=== PATIENT | female | born 1970 | race Caucasian/White ===

== ENCOUNTER 2018-08-13 10:30 | Outpatient (RCR) | payer BC, SELFPAY ==
--- NOTE | 2018-07-30 12:32 | HP.PTEVAL_ITS ---
Patient's Visit Information KAM FALLON is a 48 year old F referred to Physical Therapy by Jenny Alvarez MD with a diagnosis of SPECIFIED DORSOPATHIES,LUMBAR REGION. Date of Evaluation: 07/30/18 Physical Therapist: Jose Preciado PT, - Visit Plan Frequency: 1-2x /Week Duration: 4 Weeks Plan: ARIC E'XS,POSTURAL EX'S ,DLS ,MODALITIES - Subjective Subjective: This 48 y/o male presents to physical therapy with lumbar pain with radicular symptoms left leg. Patient has lumbar pain for several years,. But past 2 months symptoms worse in left leg. Patient does have h/o falling in January. Today,pain located left buttuck hams . Symptoms worse lifting,bending,working ,sitting,standing. Symptoms some better with walking.Seen DR muscle relaxers. Coughing/sneezing -. Bowel/bladder -. Syptoms affect sleeping. Patient has no treatment. Patient lumbar pain affects QOL and job demands. SOCAIL: . VOCATION: [place] - Pain Left Lower Extremity Pain Intensity (Out of 10): 8 Pain Intensity Range: 10 Comment: butuck hams - Objective POSTURE: mild foward posture. GAIT: mild antalgic gait left sie. NEURO: denies parathesia/tingling,reflexes L3-4,L4-5,L5-S1. MMT: quads/hams 4/5,4-/5 hip ankle 4/5. LUMBAR ROM: flexion min/mod loss,extension WNL,side glides min loss. SYMMTRIES: align - Special Tests L/S Slump test left side: Negative L/S Slump test right side: Negative L/S Left Straight Leg Raise: Negative L/S Right Straight Leg Raise: Negative Lumbar Standing: Flexion - Mechanical Response: No effect Lumbar Standing: Flexion - Symptoms During Testing: Increases Lumbar Standing: Flexion - Symptoms After Testing: Worse Lumbar Standing: Extension - Mechanical Response: No effect Lumbar Standing: Extension - Symptoms During Testing: Centralizing Lumbar Standing: Extension - Symptoms After Testing: Better Lumbar Standing: Right Side Glides - Mechanical Response: No effect Lumbar Standing: Right Side [place] - Symptoms During Testing: No effect Lumbar Standing: Right Side [place] - Symptoms After Testing: No effect Lumbar Standing: Left Side [place] - Mechanical Response: No effect Lumbar Standing: Left Side [place] - Symptoms During Testing: No effect Lumbar Standing: Left Side [place] - Symptoms After Testing: No effect Lumbar Lying: Flexion - Mechanical Response: No effect Lumbar Lying: Flexion - Symptoms During Testing: Increases Lumbar Lying: Flexion - Symptoms After Testing: Better Lumbar Lying: Extension - Mechanical Response: No effect Lumbar Lying: Extension - Symptoms During Testing: Centralizing Lumbar Lying: Extension - Symptoms After Testing: No effect - Goals Goal 1:: Independant with HEP Goal Time Frame: 2-4 Weeks Goal 2:: Independant with posture/body mechanics Goal Time Frame: 2-4 Weeks Goal 3:: Decrease lumbar pain by 50 % or greater to improve function Goal Time Frame: 2-4 Weeks Goal 4:: Patient improve lumbar OM for function of recovery Goal Time Frame: 2-4 Weeks Goal 5:: Patient to improve LENY back score by 5 points or greateer to improve QOL - Rehabilitation Potential Physical Therapy Diagnosis: This patient has derrangemnt above knee with with disc involememt centralizes with extension worse with flexion Rehabilitation Potential: Good - Anticipated Interventions Patient/Client Instruction: Educate patient on: Condition, Plan of Care For the Purpose of:: To decrease pain, To increase ROM, To improve muscle performance and motor function, To improve ability to perform ADL's, To increase tolerance to activity/condition/position, To decrease level of supervision to perform tasks, To improve health of tissue, To decrease soft tissue restriction, To increase flexibility/ROM, To prevent re-injury, To improve ability to perform tasks related to life management Therapeutic Exercise to Include: Strength training, Body mechanics, Postural training, Flexibilty training, Dynamic Lumbar Stabilization, Aric Exercises For the Purpose of:: To decrease pain, To increase ROM, To improve muscle performance and motor function, To improve ability to perform ADL's, To increase tolerance to activity/condition/position, To improve performance and independence with ADL's, To improve ability of physical actions for home/community/work/leisure, To improve health of tissue, To decrease soft tissue restriction, To prevent re-injury, To improve ability to perform tasks related to life management TENS: Yes IF ES: Yes Cryotherapy (ice pack, ice massage): Yes Thermo therapy (hot pack): Yes Ultrasound (thermal/non thermal): Yes For the Purpose of:: To decrease pain, To increase ROM, To improve nutrient delivery to tissue, To increase oxygenation perfusion, To improve health of tissue, To decrease soft tissue restriction Thank you for the opportunity to evaluate your patient. For Medicare and Medicare HMO plans, please review the plan of care and approve it. It will need to be FAXED BACK to us at [phone] for Medicare purposes. Please let me know if there are questions or concerns regarding this plan of care. Physician Signature: Date:
--- NOTE | 2018-08-13 11:08 | HP.PTDCSUM ---
HP - PT D/C Summary It has been my pleasure to treat KAM FALLON under orders from Jenny Alvarez MD, for the diagnosis of SPECIFIED DORSOPATHIES,LUMBAR REGION for a total of 2 visit(s). Discharge Date: 08/13/18 Please see the following information for a summary of their discharge status. - Subjective Subjective: Doing alot better - Pain Left Lower Extremity Pain Intensity (Out of 10): 2 - Overall Improvement % Improvement: 75 - Objective Objective/Function: POSTURE: WFL. GAIT: NORMAL STORM. MMT: QUADS/HAMS /HIP 4/5. LUMBAR ROM: WFL. RETURN TO FUNCTION OF RECOVERY - Goals Goal 1:: Independant with HEP Goal Progress: Goal Met Goal 2:: Independant with posture/body mechanics Goal Progress: Goal Met Goal 3:: Decrease lumbar pain by 50 % or greater to improve function Goal Progress: Goal Met Goal 4:: Patient improve lumbar OM for function of recovery Goal Progress: Goal Met Goal 5:: Patient to improve LENY back score by 5 points or greateer to improve QOL - Plan Plan: ARIC E'XS,POSTURAL EX'S ,DLS ,MODALITIES - D/C Information Discharge Comments: HEP If there are questions or concerns regarding this patient's physical therapy, please feel free to call me at [phone]. Thank you for the referral of this patient. Sincerely, Jose Preciado, PT,
== END 2018-08-13 19:00 | disposition home or self-care (01) ==
LOC: PT 10:30
PROVIDERS: Family Provider Family Medicine; PCP Family Medicine; Referring Provider Family Medicine; Visit Provider Family Medicine
DX: M53.86 Other specified dorsopathies, lumbar region (principal)
CPT/HCPCS: 97014; 97110; 97162; G0283

== ENCOUNTER → 2018-08-27 09:17 | Outpatient (CLI) | payer BC, SELFPAY ==
[2018-08-27 12:45] LABS: ALB/GLOB Ratio 0.9 RATIO (0.9-2.4); AST(SGOT) 13 U/L (15-37); Alanine Aminotransfer ALT/SGPT 21 U/L (13-56); Albumin, Serum 3.7 g/dL (3.2-5.0); Alkaline Phosphatase 74 U/L (45-117); Anion Gap 7 (5-15); BUN 11 mg/dL (7-18); BUN/Creat Ratio 19.2 RATIO (10-20); Calcium,Total 8.6 mg/dL (8.5-10.1); Chloride 105 mmol/L (98-107); Cholesterol 162 mg/dL (200); Creatinine, Serum 0.57 mg/dL (0.55-1.02); EST Glomerular Filtration Rate 120 mL/min (>60); Est Glom Filt Rate - Afr Amer 145 mL/min (>60); Globulin 3.9 g/dL (2.2-4.2); Glucose 241 mg/dL (74-106); High Density Lipoprotein 36 mg/dL; Potassium 4.1 mmol/L (3.5-5.1); Protein, Total 7.6 g/dL (6.4-8.2); Sodium Level 137 mmol/L (136-145); Triglycerides 78 mg/dL; Very Low Density Lipoprotein 16 mg/dL (5-40)
[2018-08-27 12:52] LABS: Microalbumin,Random Urine 60.2 mg/L (NO RANGE EST.); Microalbumin:Creatinine Ratio 51.9 mg/g CRE (<30 mg/g CRE)
== END ==
PROVIDERS: PCP Family Medicine; Visit Provider Family Medicine
DX: E11.65 Type 2 diabetes mellitus with hyperglycemia (principal)
CPT/HCPCS: 36415; 80053; 80061; 82043; 82570

== ENCOUNTER → 2018-10-24 10:12 | Outpatient (CLI) | payer SELFPAY ==
--- NOTE | 2018-10-24 10:16 | RAD_ITS ---
STUDY: X-RAY - RIGHT KNEE REASON FOR EXAM: Female, 48 years old. Injury. TECHNIQUE: 3 view(s) of the knee. COMPARISON: None. FINDINGS: Normal visualized distal femur. Normal visualized proximal tibia and fibula. Normal proximal tibiofibular articulation. Normal medial femorotibial compartment. Normal lateral femorotibial compartment. Normal patellofemoral articulation. Degenerative spur is seen along the anterior superior aspect of the patella. Small joint effusion. RAD/Knee 3 Views IMPRESSION: Small joint effusion. Electronically Signed: Dago Plummer MD at 10:53 EST , Service support ,
== END ==
LOC: HPRAD 10:13
PROVIDERS: PCP Family Medicine; Referring Provider Physician Assistant; Visit Provider Physician Assistant
DX: S86.911A Strain of unspecified muscle(s) and tendon(s) at lower leg level, right leg, initial encounter (principal)
CPT/HCPCS: 73562

== ENCOUNTER → 2018-11-19 07:20 | Outpatient (CLI) | payer OTHER, SELFPAY ==
[2018-11-12 16:02] VITALS: BMI 46.0
--- NOTE | 2018-11-19 07:28 | MRI_ITS ---
STUDY: MRI RIGHT KNEE REASON FOR EXAM: Female, 48 years old. Pain. Strain. TECHNIQUE: Standardized fat and water weighted pulse sequences were obtained in all 3 orthogonal planes. COMPARISON: X-ray October 24, 2018. FINDINGS: There is partial tear of the posterior horn of the medial meniscus adjacent to the meniscal root, series 3 image 25/42 and series 6 image 12/30. Minimal degenerative signal of the posterior horn and body of the medial meniscus. Normal hyaline cartilage of the medial femorotibial compartment. There is mild osteoarthritic spur formation of the medial knee compartment. Normal medial collateral ligamentous complex (MCL). Normal distal semimembranosus, gracilis and semitendinosus tendons. Normal lateral meniscus. Normal hyaline cartilage of the lateral femorotibial compartment. Normal lateral femoral condyle and tibial plateau. Normal proximal tibiofibular articulation. Normal lateral collateral (fibular) ligament. Normal popliteus tendon. Normal biceps femoris tendon. Normal anterior cruciate ligament (ACL). Normal posterior cruciate ligament (PCL). Normal congruent patellofemoral articulation. Normal hyaline cartilage of the patellofemoral compartment. Normal medial and lateral patellar retinaculum. Normal quadriceps tendon. Normal patellar tendon. Normal Hoffa's fat pad. There is a small volume joint effusion. The soft tissues are unremarkable. The otherwise visualized osseous structures are unremarkable. MRI/Lower Ext Joint Only (Routine) IMPRESSION: Medial meniscus tear. Joint effusion. Electronically Signed: Frank Haji MD at 8:51 EST , Service support ,
== END ==
PROVIDERS: Family Provider Family Medicine; PCP Family Medicine; Referring Provider Physician Assistant; Visit Provider Physician Assistant
DX: S83.249A Other tear of medial meniscus, current injury, unspecified knee, initial encounter (principal); M25.469 Effusion, unspecified knee
CPT/HCPCS: 73721

== ENCOUNTER 2018-12-27 20:11 | Emergency (ER) | payer BC, SELFPAY ==
[2018-12-05 16:00] VITALS: BMI 46.0
[2018-12-27 20:13] VITALS: BP 154/75; PULSE 91; RESP 16; TEMP 36.7; O2SAT 97; BMI 41.7
--- NOTE | 2018-12-27 20:30 | ED.VISSUMM ---
- ER Visit Summary Date of Service: 12/27/18 Chief Complaint: Right flank pain History of Present Illness: The patient is a 48 F who has right flank pain. Started yesterday. It sharp and stabbing in the right flank. It does not radiate. She has had urinary frequency but denies dysuria or hematuria. She has no history of kidney stones. She took nothing for it today. She went to urgent care and they directed her here. She is a diabetic. Physical Examination: Vital signs reviewed. HEENT exam unremarkable. Heart is regular rate and rhythm without murmurs. Lungs are clear to auscultation. Abdomen is soft and nontender. Does have tenderness to palpation of the right flank. There is no CVA tenderness per se. Extremities reveal no edema. Skin exam normal. Neurologic exam normal. Test Results: Urinalysis reveals 0-5 white cells and 0-5 red blood cells. CAT scan reveals perinephric stranding indicating infection Emergency Department Course and Treatment: She was given naproxen. I will start her on Bactrim for presumed pyelonephritis even though her urine is not full of white blood cells. I will give her the same medications for home. She will follow-up with her PCP Treatment Plan: [] Disposition: Discharge Impression: Pyelonephritis This note was generated with [employer] dictation software. It may contain incorrect words, spelling, and punctuation that were not noted in review of the chart prior to signing ED Disposition - Plan for ED Patient: Referrals: Jenny Alvarez MD [Primary Care Provider] -
[2018-12-27 20:33] LABS: Bacteria 0 SEEN /hpf (None Seen); Mucous, Urine 0 SEEN /hpf (<or=2+); Red Blood Cells-Urine 0 SEEN /hpf (0-5)
[2018-12-27 20:37] LABS: Color, Urine Yellow (Yellow); Glucose, Dipstick 250 mg/dl (Normal); Ketone-Dipstick Negative (Negative); Leukocyte Esterase-Dipstick Negative /ul (Negative); Nitrite-Dipstick Negative (Negative); Occult Blood-Urine 25 /ul (Negative); Protein-Dipstick Negative (Negative); Urine Bilirubin Dipstick Negative (Negative); Urine Clarity Clear (Clear); Urine Urobilinogen Normal (Normal)
[2018-12-27 20:40] LABS: Internal QC Validated? YES +Cl - CLEAR BKGD; Pregnancy, Urine Negative Negative
[2018-12-27 20:43] LABS: Squamous Epithelial Cells - UA 0-5 SEEN /hpf (5-10)
--- NOTE | 2018-12-27 20:43 | CT_ITS ---
STUDY: CT ABDOMEN AND PELVIS WITHOUT CONTRAST REASON FOR EXAM: Female, 48 years old. Right flank pain RADIATION DOSAGE (If Supplied By Facility): CTDIvol = ( 23.54 ) mGy, DLP = ( 1234.90 ) mGycm TECHNIQUE: Transaxial images were obtained from the dome of the diaphragm to the symphysis pubis without oral contrast, and without intravenous contrast. Sagittal and coronal images were reconstructed. Individualized dose optimization techniques were used for this CT. COMPARISON: None. FINDINGS: The visualized lung bases are unremarkable. The visualized portions of the heart are within normal limits. There is hepatomegaly with diffuse hepatic enlargement. Normal gallbladder and extrahepatic biliary system. Normal spleen. Normal pancreas. Normal bilateral adrenal glands. There is right perinephric fat stranding and edema. This could represent infection. No evidence of obstructing stones or hydronephrosis. Normal left kidney. Normal visualized stomach. Normal small intestine. Mild fecal retention throughout the colon. The appendix is visualized and appears normal. Normal abdominal aorta. Normal inferior vena cava. Normal retroperitoneum. There is mild circumference of bladder wall thickening. Cystitis is not excluded Normal visualized uterus. Normal abdominal wall. There are diffuse degenerative changes of the visualized lumbar spine. CT/Abdomen/Pelvis without Cont IMPRESSION: There is slight right perinephric fat stranding and edema suggesting infection. No evidence of obstructing stones or hydronephrosis. Bladder wall thickening suggesting cystitis. Recommend correlation with UA. Electronically Signed: Amos Hicks DO at 21:13 EDT Tel , Service support ,
[2018-12-27 20:44] LABS: White Blood Cells 0-5 SEEN /hpf (0-5)
[2018-12-27] MEDS: Naproxen 500 MG Tablet PO (20:44)
--- NOTE | 2018-12-27 21:29 | ED.DEP ---
ED Disposition - Plan for ED Patient: Disposition: Home or Assisted Living Instructions: ED Kidney Infec Female Prescriptions: Naproxen [Naprosyn] 500 mg PO BID PRN #20 tab Smz/Tmp Ds [Bactrim Ds] 1 tab PO BID #14 tab Referrals: Jenny Alvarez MD [Primary Care Provider] -
[2018-12-27] MEDS: Smz/Tmp Ds Tablet 1 TABLET PO (21:30)
[2018-12-27 21:34] VITALS: BP 112/62; PULSE 74; RESP 17; O2SAT 97
== END 2018-12-27 21:35 | disposition home or self-care (01) ==
PROVIDERS: Emergency Provider Emergency Medicine; Family Provider Family Medicine; PCP Family Medicine
DX: N12 Tubulo-interstitial nephritis, not specified as acute or chronic (principal); E11.9 Type 2 diabetes mellitus without complications; I10 Essential (primary) hypertension; Z72.0 Tobacco use; Z79.84 Long term (current) use of oral hypoglycemic drugs; Z79.899 Other long term (current) drug therapy
CPT/HCPCS: 74176; 81001; 81025; 99283

== ENCOUNTER → 2019-01-03 | Outpatient (CLI) | payer BC, SELFPAY ==
[2018-12-27 20:13] VITALS: BMI 41.7
== END | disposition home or self-care (01) ==
LOC: BFHLAB 10:44
PROVIDERS: Family Provider Family Medicine; PCP Family Medicine; Visit Provider Family Medicine
DX: N12 Tubulo-interstitial nephritis, not specified as acute or chronic (principal)
CPT/HCPCS: 87086; 87088

== ENCOUNTER → 2019-01-10 | Outpatient (CLI) | payer BC, SELFPAY ==
[2018-12-27 20:13] VITALS: BMI 41.7
--- NOTE | 2019-01-10 15:42 | CT_ITS ---
STUDY: CT ABDOMEN AND PELVIS WITHOUT CONTRAST REASON FOR EXAM: Female, 48 years old. Pyelonephritis. Recently finished antibiotics but continued right flank and right lower quadrant pain. RADIATION DOSAGE (If Supplied By Facility): CTDIvol = ( 14.80 ) mGy, DLP = ( 759.35 ) mGycm TECHNIQUE: Transaxial images were obtained from the dome of the diaphragm to the symphysis pubis without oral contrast, and without intravenous contrast. Sagittal and coronal images were reconstructed. Individualized dose optimization techniques were used for this CT. COMPARISON: December 27, 2018. FINDINGS: The visualized lung bases are unremarkable. The visualized portions of the heart are within normal limits. Normal liver. Normal gallbladder and extrahepatic biliary system. Normal spleen. Normal pancreas. Normal bilateral adrenal glands. Normal right kidney. Again seen is minimal stranding of the right perinephric fat. Normal left kidney. Normal bilateral ureters. Normal visualized stomach. Normal small intestine. Normal colon. The appendix is visualized and appears normal. Normal abdominal aorta. Normal inferior vena cava. Normal retroperitoneum. Normal urinary bladder. Normal uterus and ovaries. There is no pelvic lymphadenopathy or mass. No free air or free fluid is seen within the peritoneal cavity. Normal abdominal wall. There are diffuse degenerative changes of the visualized lumbar spine. CT/Abdomen/Pelvis without Cont IMPRESSION: No major interval change when compared to prior study. Possibility of continued pyelonephritis cannot be ruled out on a noncontrast study. Electronically Signed: Maximus Carrizales DO at 20:55 EDT Tel [phone], Service support ,
== END | disposition home or self-care (01) ==
LOC: CT 15:39
PROVIDERS: Family Provider Family Medicine; PCP Family Medicine; Referring Provider Family Medicine; Visit Provider Family Medicine
DX: N12 Tubulo-interstitial nephritis, not specified as acute or chronic (principal)
CPT/HCPCS: 74176

== ENCOUNTER → 2019-04-05 | Outpatient (CLI) | payer BC, SELFPAY ==
[2019-04-11 09:15] LABS: HPV APTIMA, High Risk Negative (Negative)
== END | disposition home or self-care (01) ==
LOC: BFHLAB 15:03
PROVIDERS: Family Provider Family Medicine; PCP Family Medicine; Visit Provider Family Medicine
DX: Z12.4 Encounter for screening for malignant neoplasm of cervix (principal)
CPT/HCPCS: 88175; G0145

== ENCOUNTER → 2019-04-22 | Outpatient (CLI) | payer BC, SELFPAY ==
--- NOTE | 2019-04-22 12:35 | BI_ITS ---
MAMMOGRAPHY - BILATERAL SCREENING REASON FOR EXAM: Female, 49 years old. Routine annual screening examination. PERTINENT HISTORY: Non-contributory. TECHNIQUE: Digital bilateral breast dimitrios (3D mammographic acquisition) in the CC and MLO projections. 2-D mediolateral oblique (MLO) and craniocaudad (CC) views of both breasts were obtained. CAD: Full Field Digital Mammography with Computer Added Detection was performed. COMPARISON: None. Baseline examination. FINDINGS: Breast Composition: There are scattered areas of fibroglandular density. There are no dominant masses or suspicious calcifications. Scattered benign-appearing bilateral calcifications. No other significant abnormalities are identified. BI/SCREEN MAMM (CAD) W/DIMITRIOS BILAT IMPRESSION: Negative screening mammogram. Yearly followup mammogram recommended. (A) ASSESSMENT CATEGORY: BIRADS Category 2: Benign. A letter regarding these results will be sent to the patient by the facility within 30 days. Approximately 10% of breast cancers are not detected by mammography. A normal mammogram should not delay biopsy of a clinically suspicious abnormality. [id number] Electronically Signed: Dago Plummer, at 14:52 EDT , Service support ,
== END | disposition home or self-care (01) ==
LOC: OPBI 12:33
PROVIDERS: Family Provider Family Medicine; PCP Family Medicine; Referring Provider Family Medicine; Visit Provider Family Medicine
DX: Z12.31 Encounter for screening mammogram for malignant neoplasm of breast (principal)
CPT/HCPCS: 77063; 77067

== ENCOUNTER → 2019-10-14 08:52 | Outpatient (CLI) | payer BC, SELFPAY ==
[2019-10-14 13:05] LABS: Microalbumin,Random Urine 13.6 mg/L (NO RANGE EST.); Microalbumin:Creatinine Ratio 24.6 mg/g CRE (<30 mg/g CRE)
[2019-10-14 13:11] LABS: ALB/GLOB Ratio 1.1 RATIO (0.9-2.4); AST(SGOT) 24 U/L (15-37); Alanine Aminotransfer ALT/SGPT 43 U/L (13-56); Albumin, Serum 3.9 g/dL (3.2-5.0); Alkaline Phosphatase 66 U/L (45-117); Anion Gap 7 (5-15); BUN 10 mg/dL (7-18); BUN/Creat Ratio 17.6 RATIO (10-20); Chloride 104 mmol/L (98-107); Cholesterol 194 mg/dL (200); Creatinine, Serum 0.57 mg/dL (0.55-1.02); EST Glomerular Filtration Rate 120 mL/min (>60); Est Glom Filt Rate - Afr Amer 146 mL/min (>60); Globulin 3.7 g/dL (2.2-4.2); Glucose 178 mg/dL (74-106); High Density Lipoprotein 37 mg/dL; Potassium 3.6 mmol/L (3.5-5.1); Protein, Total 7.6 g/dL (6.4-8.2); Sodium Level 137 mmol/L (136-145); Triglycerides 196 mg/dL; Very Low Density Lipoprotein 39 mg/dL (5-40)
== END ==
PROVIDERS: PCP Family Medicine; Visit Provider Family Medicine
DX: E11.9 Type 2 diabetes mellitus without complications (principal)
CPT/HCPCS: 36415; 80053; 80061; 82043; 82570

== ENCOUNTER → 2020-01-23 | Outpatient (CLI) | payer BC, SELFPAY | END | disposition home or self-care (01) | LOC: LABSPEC 12:41 | PROVIDERS: PCP Family Medicine; Referring Provider Family Medicine; Visit Provider Family Medicine | DX: U07.1 COVID-19 (principal); J98.8 Other specified respiratory disorders | CPT/HCPCS: 87635; G2023; U0004 ==

== ENCOUNTER → 2020-03-06 | Outpatient (CLI) | payer BC, SELFPAY | END | disposition home or self-care (01) | LOC: BFHLAB 15:45 | PROVIDERS: PCP Family Medicine; Visit Provider Family Medicine | DX: R10.9 Unspecified abdominal pain (principal) | CPT/HCPCS: 87077; 87086; 87088; 87186 ==

== ENCOUNTER → 2020-04-21 | Outpatient (CLI) | payer BC, SELFPAY ==
[2020-04-21 10:44] VITALS: BMI 41.7
--- NOTE | 2020-04-21 10:59 | RAD_ITS ---
STUDY: X-RAY CHEST REASON FOR EXAM: Female, 50 years old. SHARP PAIN UNDER LEFT SHOULDER BLADE AREA X 10 DAYS, NKI TECHNIQUE: PA and lateral views of the chest. COMPARISON: None. FINDINGS: The lungs are clear and expanded. There is no demonstrated pleural abnormality. Normal size heart. Normal mediastinum and tamela. Normal visualized pulmonary arteries. Normal visualized aortic arch and descending thoracic aorta. There are diffuse degenerative changes of the visualized thoracic spine. Normal visualized ribs, clavicles, and shoulders. There is no demonstrated abnormality of the visualized soft tissue structures of the upper abdomen. RAD/Chest PA and Lateral IMPRESSION: No acute abnormality is seen. Electronically Signed: Dago Plummer, at 12:07 EDT , Service support ,
== END | disposition home or self-care (01) ==
LOC: HPRAD 10:59
PROVIDERS: PCP Family Medicine; Referring Provider Physician Assistant Surgical; Visit Provider Physician Assistant Surgical
DX: S29.019A Strain of muscle and tendon of unspecified wall of thorax, initial encounter (principal)
CPT/HCPCS: 71046

== ENCOUNTER → 2020-06-16 | Outpatient (CLI) | payer BC, SELFPAY ==
[2020-04-21 10:44] VITALS: BMI 41.7
[2020-06-16 17:16] LABS: Erythrocyte Sedimentation Rate 4 mm/hr (0-20)
[2020-06-16 17:40] LABS: CRP < 2.90 mg/L (0.0-3.0); Rheumatoid Factor < 10.0 IU/mL (<15)
[2020-06-18 17:38] LABS: ANTINUCLEAR ANTIBODIES DIRECT Negative (Negative)
[2020-06-19 04:32] LABS: CCP IgG Antibodies 3 units (0-19)
== END | disposition home or self-care (01) ==
LOC: BFHLAB 14:02
PROVIDERS: PCP Family Medicine; Visit Provider Family Medicine
DX: M02.30 Reiter's disease, unspecified site (principal)
CPT/HCPCS: 36415; 85652; 86038; 86140; 86200; 86431

== ENCOUNTER → 2020-08-07 17:32 | Outpatient (CLI) | payer BC, SELFPAY ==
[2020-04-21 10:44] VITALS: BMI 41.7
== END ==
PROVIDERS: PCP Family Medicine; Referring Provider Family Medicine; Visit Provider Family Medicine
DX: Z20.828 Contact with and (suspected) exposure to other viral communicable diseases (principal)
CPT/HCPCS: 87635; C9803; U0003

== ENCOUNTER → 2020-09-25 11:02 | Outpatient (CLI) | payer BC, SELFPAY ==
[2020-04-21 10:44] VITALS: BMI 41.7
[2020-09-25 15:45] LABS: AST(SGOT) 29 U/L (15-37); Alanine Aminotransfer ALT/SGPT 48 U/L (13-56); Albumin, Serum 3.7 g/dL (3.2-5.0); Alkaline Phosphatase 56 U/L (45-117); Anion Gap 8 (5-15); BUN 20 mg/dL (7-18); BUN/Creat Ratio 32.2 RATIO (10-20); Calcium,Total 8.7 mg/dL (8.5-10.1); Chloride 107 mmol/L (98-107); Cholesterol 169 mg/dL (200); Creatinine, Serum 0.62 mg/dL (0.55-1.02); EST Glomerular Filtration Rate 108 mL/min (>60); Est Glom Filt Rate - Afr Amer 131 mL/min (>60); Globulin 3.6 g/dL (2.2-4.2); Glucose 147 mg/dL (74-106); High Density Lipoprotein 39 mg/dL; Potassium 4.2 mmol/L (3.5-5.1); Protein, Total 7.3 g/dL (6.4-8.2); Sodium Level 137 mmol/L (136-145); Triglycerides 77 mg/dL; Very Low Density Lipoprotein 15 mg/dL (5-40)
[2020-09-25 15:48] LABS: Basophil# 0.05 X10^3/uL; Basophil% 0.7 % (0-1); Eosinophil# 0.21 X10^3/uL; Eosinophils% 3.1 % (0-5); Hematocrit 42.9 % (37-47); Hemoglobin 13.8 g/dL (12.0-15.0); Lymphocyte % 27.6 % (19-41); Mean Corp Hgb Conc 32.2 g/dL (32-36); Mean Corpuscular Hgb 30.3 pg (27.0-32.0); Mean Corpuscular Volume 94.1 fL (81-99); Mean Platelet Vol. 10.7 fl (6.2-12.0); Microalbumin,Random Urine 31.4 mg/L (NO RANGE EST.); Microalbumin:Creatinine Ratio 33.5 mg/g CRE (<30 mg/g CRE); Monocyte# 0.61 X10^3/uL; Monocyte% 8.9 % (0-10); NRBC Flagged by Analyzer 0 % (0-5); Neutrophil # 4.03 X10^3/uL (2.7-7.7); Neutrophil % 58.5 % (47-70); Platelet Count 270 K/mm3 (150-450); RBC Distribution Width CV 12.8 % (11.6-14.6); Red Blood Count 4.56 M/mm3 (4.2-5.4); White Blood Count 6.9 K/mm3 (4.4-11.0)
== END ==
PROVIDERS: PCP Family Medicine; Visit Provider Family Medicine
DX: E11.9 Type 2 diabetes mellitus without complications (principal)
CPT/HCPCS: 36415; 80053; 80061; 82043; 82570; 85025

== ENCOUNTER → 2021-01-28 08:50 | Outpatient (CLI) | payer BC, SELFPAY ==
[2020-04-21 10:44] VITALS: BMI 41.7
--- NOTE | 2021-01-28 11:02 | NEURO ---
NCS and/or EMG Patient Report Ordering Doctor: Jenny Alvarez DATE OF SERVICE: 01/28/21 Indication: Approximately 6 months of bilateral burning pain and numbness in her feet (left greater than right). Intermittent localized back pain, but no weakness in the lower extremities. History of type 2 diabetes. Evaluate for peripheral nerve injury. Findings: Nerve conduction studies were performed in the left upper and lower extremities. Some comparison studies were performed on the right. The left radial sensory response recording over the extensor snuff box showed a reduced amplitude, normal latency and normal conduction velocity. The left peroneal motor study recording the extensor digitorum brevis showed a normal amplitude, normal distal latency and normal conduction velocity. No conduction block or focal slowing was present across the fibular neck. The left tibial motor study recording the abductor hallucis brevis showed a normal amplitude, normal distal latency and mildly slowed conduction velocity. Left sural sensory response showed a markedly reduced amplitude and mildly slowed conduction velocity. Left superficial peroneal sensory response showed a reduced amplitude and mildly slowed conduction velocity. Left medial plantar sensory response was absent. On the right, the sural was absent. Needle EMG of the left lower extremity and lumbar paraspinal muscles was performed. No denervation was present in any muscle. Motor units in the most distal muscle (left extensor hallucis longus) were large amplitude, long duration with normal recruitment. All other muscles demonstrated normal motor unit morphology, activation, and recruitment patterns. Impression: This is an abnormal study. 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 In addition, there was no electrophysiologic evidence of a superimposed lumbar radiculopathy in the left lower extremity. Karl Hays D.O.
== END ==
LOC: PSN 08:51
PROVIDERS: PCP Family Medicine; Referring Provider Family Medicine; Visit Provider Family Medicine
DX: E11.40 Type 2 diabetes mellitus with diabetic neuropathy, unspecified (principal); M79.662 Pain in left lower leg
CPT/HCPCS: 95886; 95910

== ENCOUNTER → 2021-04-16 | Outpatient (CLI) | payer BC, SELFPAY ==
[2020-04-21 10:44] VITALS: BMI 41.7
== END | disposition home or self-care (01) ==
PROVIDERS: PCP Family Medicine; Visit Provider Family Medicine
DX: N39.0 Urinary tract infection, site not specified (principal)
CPT/HCPCS: 87077; 87086; 87088; 87186

== ENCOUNTER → 2021-07-08 | Outpatient (CLI) | payer BC, SELFPAY | END | disposition home or self-care (01) | LOC: LABSPEC 10:19 | PROVIDERS: PCP Family Medicine; Visit Provider Family Medicine | DX: Z20.822 Contact with and (suspected) exposure to COVID-19 (principal) | CPT/HCPCS: 87635; U0005; U0003 ==

== ENCOUNTER 2022-01-04 07:39 | Outpatient (CLI) | payer BC, SELFPAY ==
[2022-01-04 10:11] LABS: Vitamin D,25 Hydroxy 40.7 ng/mL
[2022-01-04 10:32] LABS: ALB/GLOB Ratio 1.1 RATIO (0.9-2.4); AST(SGOT) 28 U/L (15-37); Alanine Aminotransfer ALT/SGPT 46 U/L (13-56); Albumin, Serum 3.7 g/dL (3.2-5.0); Alkaline Phosphatase 58 U/L (45-117); Anion Gap 9 (5-15); BUN 9 mg/dL (7-18); BUN/Creat Ratio 16.3 RATIO (10-20); Calcium,Total 8.8 mg/dL (8.5-10.1); Chloride 104 mmol/L (98-107); Cholesterol 197 mg/dL (200); Creatinine, Serum 0.55 mg/dL (0.55-1.02); EST Glomerular Filtration Rate 124 mL/min (>60); Est Glom Filt Rate - Afr Amer 150 mL/min (>60); Globulin 3.4 g/dL (2.2-4.2); Glucose 157 mg/dL (74-106); High Density Lipoprotein 37 mg/dL; Potassium 4.1 mmol/L (3.5-5.1); Protein, Total 7.1 g/dL (6.4-8.2); Sodium Level 137 mmol/L (136-145); Thyroid Stim Hormone (TSH) 2.24 uIU/mL (0.358-3.74); Triglycerides 136 mg/dL; Very Low Density Lipoprotein 27 mg/dL (5-40)
[2022-01-04 10:35] LABS: Microalbumin,Random Urine 47.4 mg/L (NO RANGE EST.)
== END 2022-01-04 23:59 | disposition home or self-care (01) ==
LOC: MTLAB 07:42
PROVIDERS: PCP Family Medicine; Referring Provider Nurse Practitioner Family; Visit Provider Nurse Practitioner Family
DX: E11.65 Type 2 diabetes mellitus with hyperglycemia (principal); E66.01 Morbid (severe) obesity due to excess calories; Z68.42 Body mass index [BMI] 45.0-49.9, adult; R03.0 Elevated blood-pressure reading, without diagnosis of hypertension
CPT/HCPCS: 36415; 80053; 80061; 82043; 82306; 82570; 84443

== ENCOUNTER → 2022-01-24 | Outpatient (CLI) | payer BC, SELFPAY ==
[2022-01-24 16:50] LABS: Vitamin B12 359 pg/mL (211-911)
== END | disposition home or self-care (01) ==
LOC: BIMLAB 15:08
PROVIDERS: PCP Family Medicine; Visit Provider Nurse Practitioner Family
DX: R20.2 Paresthesia of skin (principal)
CPT/HCPCS: 36415; 82607

== ENCOUNTER → 2022-02-23 | Outpatient (CLI) | payer BC, SELFPAY ==
--- NOTE | 2022-02-23 15:46 | BI_ITS ---
MAMMOGRAPHY - BILATERAL SCREENING REASON FOR EXAM: Female, 52 years old. Routine annual screening examination. PERTINENT HISTORY: Non-contributory. TECHNIQUE: Digital bilateral breast dimitrios (3D mammographic acquisition) in the CC and MLO projections. 2-D mediolateral oblique (MLO) and craniocaudad (CC) views of both breasts were obtained. CAD: Full Field Digital Mammography with Computer Added Detection was performed. COMPARISON: Comparison is made with prior study dated 04/22/2019. FINDINGS: Breast Composition: The breasts are almost entirely fatty. There are no dominant masses or suspicious calcifications. No other significant abnormalities are identified. There has been no significant change since the prior study. BI/SCRN MAMM (CAD)W/DIMITRIOS BILAT IMPRESSION: Stable bilateral screening mammogram. Yearly follow-up mammogram recommended. (A) ASSESSMENT CATEGORY: BIRADS Category 1: Negative. A letter regarding these results will be sent to the patient by the facility within 30 days. Approximately 10% of breast cancers are not detected by mammography. A normal mammogram should not delay biopsy of a clinically suspicious abnormality. [id number] Electronically Signed: Dago Plummer MD at 16:26 EDT ,
== END | disposition home or self-care (01) ==
PROVIDERS: PCP Family Medicine; Visit Provider Family Medicine
DX: Z12.31 Encounter for screening mammogram for malignant neoplasm of breast (principal)
CPT/HCPCS: 77063; 77067

== ENCOUNTER → 2023-03-07 | Outpatient (CLI) | payer OTHER, SELFPAY | END | disposition home or self-care (01) | LOC: SL 09:29 | PROVIDERS: PCP Internal Medicine; Referring Provider Internal Medicine; Visit Provider Internal Medicine | DX: G47.10 Hypersomnia, unspecified (principal); R29.818 Other symptoms and signs involving the nervous system | CPT/HCPCS: 95806 ==

== ENCOUNTER → 2023-04-05 | Outpatient (CLI) | payer OTHER, SELFPAY ==
--- NOTE | 2023-04-05 15:19 | NEURO ---
NCS and/or EMG Patient Report Ordering Doctor: Kamla Shultz DATE OF SERVICE: 04/05/23 Alexandra presents for electrodiagnostic testing of the upper limbs. She reports numbness and tingling in both hands, worse on the right side. Electrodiagnostic findings: Right median motor nerve demonstrates significantly prolonged distal latency with reduced amplitude and reduced conduction velocity. Left median motor nerve demonstrates prolonged distal latency with normal amplitude and borderline reduced conduction velocity. Ulnar motor response is within normal limits bilaterally, including conduction across the elbow. Prolonged median F-wave bilaterally. Absent median sensory responses at the wrist bilaterally. Normal ulnar and radial sensory responses. Needle EMG testing was performed in the upper limbs. Motor unit action potentials were normal amplitude and duration without polyphasic activity. No acute denervation was noted in any muscles tested. Electrodiagnostic impression: This is an abnormal study in the upper limbs 1. Electrodiagnostic evidence is suggestive of bilateral median mononeuropathy. This is consistent with a moderate to severe left carpal tunnel syndrome and a severe right carpal tunnel syndrome. 2. No electrodiagnostic evidence is noted for cervical radiculopathy. Multi Select Codes Neurology Neurology Interp Codes: 53732-97 Musc test done w/n test comp (interp) (2) and 47181-68 Nrv cndj test 9-10 studies (interp)
== END | disposition home or self-care (01) ==
PROVIDERS: PCP Internal Medicine; Referring Provider Orthopaedic Surgery; Visit Provider Internal Medicine
DX: G56.03 Carpal tunnel syndrome, bilateral upper limbs (principal)
CPT/HCPCS: 95886; 95911

== ENCOUNTER → 2023-04-20 | Outpatient (CLI) | payer OTHER, SELFPAY ==
[2023-04-20 09:26] LABS: Mucous, Urine 0 SEEN /hpf (<or=2+); Red Blood Cells-Urine 0 SEEN /hpf (0-5)
[2023-04-20 12:42] LABS: Absolute Lymphocyte Count 2.66 X10^3/uL (0.83-4.51); Absolute Neutrophil Count 3.6 X10^3/uL (2.0-7.7); Basophil# 0.05 X10^3/uL; Basophil% 0.7 % (0-1); Eosinophil# 0.27 X10^3/uL; Eosinophils% 3.7 % (0-5); Hematocrit 41.8 % (37-47); Hemoglobin 13.5 g/dL (12.0-15.0); Lymphocyte # 2.66 X10^3/ul (0.83-4.51); Lymphocyte % 36.7 % (19-41); Mean Corp Hgb Conc 32.3 g/dL (32-36); Mean Corpuscular Hgb 30.8 pg (27.0-32.0); Mean Corpuscular Volume 95.2 fL (81-99); Mean Platelet Vol. 10.8 fl (6.2-12.0); Monocyte% 8.3 % (0-10); NRBC Flagged by Analyzer 0 % (0-5); Neutrophil # 3.61 X10^3/uL (2.7-7.7); Neutrophil % 49.8 % (47-70); Platelet Count 291 K/mm3 (150-450); RBC Distribution Width CV 12.8 % (11.6-14.6); Red Blood Count 4.39 M/mm3 (4.2-5.4); White Blood Count 7.3 K/mm3 (4.4-11.0)
[2023-04-20 13:06] LABS: Color, Urine Yellow (Yellow); Glucose, Dipstick Normal (Normal); Ketone-Dipstick Negative (Negative); Leukocyte Esterase-Dipstick 500 /ul (Negative); Nitrite-Dipstick Positive (Negative); Occult Blood-Urine 10 /ul (Negative); Protein-Dipstick Negative (Negative); Specific Gravity, Urine 1.015 (1.002-1.030); Urine Bilirubin Dipstick Negative (Negative); Urine Clarity Sl. Cloudy (Clear); Urine Urobilinogen Normal (Normal)
[2023-04-20 13:24] LABS: ALB/GLOB Ratio 1.1 RATIO (0.9-2.4); AST(SGOT) 21 U/L (15-37); Alanine Aminotransfer ALT/SGPT 41 U/L (13-56); Albumin, Serum 3.6 g/dL (3.2-5.0); Alkaline Phosphatase 61 U/L (45-117); Anion Gap 4 (5-15); BUN 10 mg/dL (7-18); Calcium,Total 9.3 mg/dL (8.5-10.1); Chloride 106 mmol/L (98-107); Cholesterol 184 mg/dL (200); Creatinine, Serum 0.56 mg/dL (0.55-1.02); EST Glomerular Filtration Rate 122 mL/min (>60); Est Glom Filt Rate - Afr Amer 147 mL/min (>60); Globulin 3.3 g/dL (2.2-4.2); Glucose 108 mg/dL (74-106); High Density Lipoprotein 39 mg/dL; Potassium 4.8 mmol/L (3.5-5.1); Protein, Total 6.9 g/dL (6.4-8.2); Sodium Level 139 mmol/L (136-145); Triglycerides 142 mg/dL; Very Low Density Lipoprotein 28 mg/dL (5-40)
[2023-04-20 13:26] LABS: Microalbumin,Random Urine 34.4 mg/L (NO RANGE EST.); Microalbumin:Creatinine Ratio 67.5 mg/g CRE (<30 mg/g CRE); White Blood Cells >100 SEEN /hpf (0-5)
[2023-04-20 13:27] LABS: Bacteria RARE /hpf (None Seen); Squamous Epithelial Cells - UA 0-5 SEEN /hpf (5-10)
== END | disposition home or self-care (01) ==
LOC: BIMLAB 09:12
PROVIDERS: PCP Internal Medicine; Referring Provider Internal Medicine; Visit Provider Internal Medicine
DX: R35.0 Frequency of micturition (principal); E11.9 Type 2 diabetes mellitus without complications; R80.9 Proteinuria, unspecified
CPT/HCPCS: 36415; 80053; 80061; 81001; 82043; 82570; 85025; 87086; 87088; 87186

== ENCOUNTER → 2023-04-24 | Outpatient (CLI) | payer OTHER, SELFPAY ==
--- NOTE | 2023-04-24 09:23 | BI_ITS ---
MAMMOGRAPHY - BILATERAL SCREENING REASON FOR EXAM: Female, 53 years old. Routine annual screening examination. PERTINENT HISTORY: Non-contributory. TECHNIQUE: Digital bilateral breast dimitrios (3D mammographic acquisition) in the CC and MLO projections. 2-D mediolateral oblique (MLO) and craniocaudad (CC) views of both breasts were obtained. CAD: Full Field Digital Mammography with Computer Added Detection was performed. COMPARISON: Comparison is made with prior study dated February 23, 2022 and April 22, 2019. FINDINGS: Breast Composition: The breasts are almost entirely fatty. There are no dominant masses or suspicious calcifications. Stable small benign appearing bilateral axillary lymph nodes. Stable scattered calcifications in both breasts. No other significant abnormalities are identified. There has been no significant change since the prior study. BI/SCRN MAMM (CAD)W/DIMITRIOS BILAT IMPRESSION: Stable bilateral screening mammogram. Yearly follow-up mammogram recommended. (A) ASSESSMENT CATEGORY: BIRADS Category 2: Benign. A letter regarding these results will be sent to the patient by the facility within 30 days. Approximately 10% of breast cancers are not detected by mammography. A normal mammogram should not delay biopsy of a clinically suspicious abnormality. [id number] Electronically Signed: Dago Plummer MD at 10:43 EDT ,
== END | disposition home or self-care (01) ==
LOC: OPBI 09:03
PROVIDERS: PCP Internal Medicine; Referring Provider Internal Medicine; Visit Provider Internal Medicine
DX: Z12.31 Encounter for screening mammogram for malignant neoplasm of breast (principal)
CPT/HCPCS: 77063; 77067

== ENCOUNTER 2023-07-04 05:53 | Day surgery (SDC) | payer OTHER, SELFPAY ==
[2023-07-04] VITALS (7 sets, daily range): BP systolic 86–117; BP diastolic 52–60; PULSE 78–83; RESP 16–18; TEMP 36.2–36.9; O2SAT 93–100; BMI 41.6
[2023-07-04] MEDS: Lactated Ringers 1,000 ML 15 ML IV (06:38)
--- NOTE | 2023-07-04 07:05 | HP.PCM_ITS ---
History and Physical Date of Admission: 07/04/23 [facility] [address] [place] [address] OFFICE VISIT Date of Service: 06/05/23 MR#: [id number] Acct: [id number] Name: KAM FALLON Rep #: [id number] : 1970 Provider: Dr. Logan Bates DO Age/Sex: 53/F Location: [facility] [place] Status: Signed Intake Vital Signs 05/25/2315:25 Height 5 ft 6 in Weight: 259 lb BMI 41.8 BP 128/74 H Blood Pressure Location Lt brachial Position Sitting Respiration 16 Pulse 88 Pulse Source Monitor Temp 97.3 F L Temp Source Temporal Pulse Oximetry (%) 98 Oxygen Delivery Method room air Intake Visit Reasons: BI LAT HANDS Accompanied by: Self Allergies red dye Allergy (Unknown, Verified 06/05/23 15:41) UnknownEnvironmental Allergies: Uncoded Adverse Reaction (Verified 06/05/23 15:41) Aggravates Asthma Medications ibuprofen 200 mg capsule 200 mg PO TID-QID PRN Pain 10/24/18 [History Confirmed 06/05/23] cholecalciferol (vitamin D3) 50 mcg (2,000 unit) capsule 50 mcg PO DAILY 11/11/21 [History Confirmed 06/05/23] cyanocobalamin (vitamin B-12) 5,000 mcg disintegrating tablet 5,000 mcg PO DAILY 05/11/22 [History Confirmed 06/05/23] multivitamin (Daily Multi-Vitamin tablet) 1 tab PO DAILY 05/11/22 [History Confirmed 06/05/23] magnesium oxide 500 mg capsule 500 mg PO DAILY 05/31/22 [History Confirmed 06/05/23] glipizide 10 mg tablet 10 mg PO BID #180 tabs 08/08/22 [Rx Confirmed 06/05/23] lisinopril 10 mg tablet 10 mg PO DAILY #90 tabs 08/08/22 [Rx Confirmed 06/05/23] loratadine 10 mg tablet (Claritin) 10 mg PO DAILY PRN 10/19/22 [History Confirmed 06/05/23] metformin 1,000 mg tablet 1,000 mg PO BID #60 tabs 08/01/23 [Rx Confirmed 06/05/23] albuterol sulfate 90 mcg/actuation aerosol inhaler 1 puff inhalation Q6H PRN shortness of breath or wheezing #8.5 grams 04/20/23 [Rx Confirmed 06/05/23] dapagliflozin propanediol 10 mg tablet (Farxiga) 10 mg PO DAILY #30 tabs 04/26/23 [Rx Confirmed 06/05/23] dulaglutide 4.5 mg/0.5 mL subcutaneous pen injector (Trulicity) 4.5 mg (0.5 mL) subcut QWEEK #2 mL 04/26/23 [Rx Confirmed 06/05/23] ezetimibe 10 mg tablet 10 mg PO DAILY #30 tabs 04/26/23 [Rx Confirmed 06/05/23] gabapentin 300 mg capsule 300 mg PO BID #60 caps 05/17/23 [Rx Confirmed 06/05/23] brexpiprazole 1 mg tablet (Rexulti) 1 mg PO DAILY #30 tabs 05/25/23 [Rx Confirmed 06/05/23] salicylic acid 3 % topical cream 1 applic topical DAILY #21 grams 05/25/23 [Rx Confirmed 06/05/23] buspirone 5 mg tablet 5 mg PO DAILY #90 tabs 05/28/23 [Rx Confirmed 06/05/23] citalopram 40 mg tablet 40 mg PO DAILY #90 tabs 05/28/23 [Rx Confirmed 06/05/23] duloxetine 60 mg capsule,delayed release 60 mg PO DAILY #90 caps 05/28/23 [Rx Confirmed 06/05/23] PFSH Medical History Asthma Avulsion of nail plate Diabetes Microalbuminuria Obesity Scabies Stomach ulcer Surgical History H/O oral surgery Family History Mother HypertensionFather Hypertension Diabetes Cancer pancreaticGrandmother Diabetes CancerUncle Cancer lung Social History household members: spouse current occupational status: employed current occupation: automotive service cashier at [employer] Smoking Status: Former smoker Electronic Cigarette Use: not used alcohol intake: current alcohol intake frequency: holidays/special occasions only substance use type: does not use do you feel safe at home: Yes HPI BI LAT HANDS Details: Parts of this documentation were recorded by a scribe, this documentation accurately reflects the service provided and the decisions made by me, Dr. Logan Bates, DO 06/05/23 1030. KAM FALLON is a 53 year old F here today for review of EMG testing for her bilateral hands. Denies any changes. The right continues to be worse than the left. The right is worse in the middle index and radial side of the ring finger intermittently involving the thumb but it does spare the fifth digit. Ortho Exam General General: Yes no acute distress Neurologic: Yes alert and Yes oriented x3 Psychologic: Yes reasonable and appropriate Right Wrist/Hand Skin/Wound: Yes CDI, No Swelling, No Ecchymosis and Yes capillary refill normal Right Wrist: Yes ROM-Extension 0-60, ROM-Flexion 0-80, ROM-Pronation 0-80, Durken's Test, Tinel's and Phalen's; No Tender to palpate triangular fibrocartilage complex, Distal radioulnar joint, Thenar Atrophy or Hypothenar Atrophy Sensation: Radial: I and Ulnar: I WRIST: 80 supination no atrophy 5/5 finger abduction Left Wrist/Hand Skin/Wound: Yes CDI, No Swelling, No Ecchymosis, Yes nail intact, Yes capillary refill normal and No erythema Left Wrist: Yes ROM-Extension 0-60, Yes ROM-Flexion 0-80, Yes ROM-Pronation 0- 80, Yes Durken's Test, Yes Tinel's (into thumb) and Yes Phalen's; No Thenar Atrophy and No Hypothenar Atrophy Sensation: Radial: I and Ulnar: I WRIST: 80 supination 5/5 finger abduction no atrophy Head: Normocephalic Atraumatic Chest: symmetrical rise, non-labored breathing, no audible wheeze Abdomen: no guarding, non-rigid Supplemental Info 04/05/2023 1. Electrodiagnostic evidence is suggestive of bilateral median mononeuropathy. This is consistent with a moderate to severe left carpal tunnel syndrome and a severe right carpal tunnel syndrome. 2. No electrodiagnostic evidence is noted for cervical radiculopathy. Carpal tunnel release surgery discussed. 3 week Restrictions discussed. Coding Level of Care Code Off vis,est,level 3 Diagnoses Bilateral carpal tunnel syndrome G56.03 Assessment and Plan Assessment and Plan (1) Bilateral carpal tunnel syndrome: Status: Acute Plan Patient does have severe bilateral carpal tunnel syndrome symptomatically her right is much worse than her left that she wishes to proceed with treatment of the right wrist benefits and alternatives of surgical versus nonsurgical treatment were reviewed , she does wish to proceed with a right open carpal tunnel release reviewed the pre-operative plans with the patient. Risks and benefits of the procedure were fully explained, including, incisional hypersensitivity pillar pain, infection, neurovascular injury, continued pain/symptoms , arthritis, stiffness, need for further surgery, re-injury, DVT, PE, general risks of anesthesia, and loss of limb or life. The patient understands all the risks and does wish to proceed with written consent. Pt wishes to proceed with carpal tunnel surgery to right hand. Tentative surgery date July 04, 2023 06/05/23 1558 <Electronically signed by Logan Bates DO> Date Logan Bates DO Cosigner Signature: Date (if applicable) CC: ~ I have examined the patient and the H&P has been reviewed. There are no clinical changes since date of exam.
[2023-07-04] MEDS: Cefazolin 2 GM in 0.9% Normal Saline (100mL Bag) 100 ML IV (07:21)
[2023-07-04] MEDS: Lidocaine 1%/Epi 1:200 (30ml) 30 ML AMPUL (07:42)
--- NOTE | 2023-07-04 07:58 | OP.PCM_ITS ---
Operative Report Date of Procedure: 07/04/23 Preoperative diagnosis; right carpal tunnel syndrome Postoperative diagnosis; same Procedure: Right open carpal tunnel release Anesthesia: Local with MAC Tourniquet time; 10 minutes 250 mm Hg Complications: None Indication for procedure; This is a 53-year-old female with long-standing s ymptoms consistent with carpal tunnel syndrome the patient did have electrodiagnostic evidence of this and has failed conservative treatment. Risks benefits and alternatives were reviewed including risks of bleeding infection nerve artery tissue damage need for further surgery and continued pain and symptoms, hypersensitivity to scar and Pillar pain. Procedure; The patient was met in the preoperative holding area the operative extremity was identified by both patient and physician and was marked the patient was met by anesthesia and brought back to the operating room and transferred to the operating table in the supine position. Anesthesia was started. A well-padded tourniquet was placed on the operative upper extremity. The patient was prepped and draped in the usual sterile fashion. A timeout was called to ensure the proper patient procedure and extremity were being contemplated. 0.5 percent lidocaine with epinephrine was injected into the incisional area. An Esmarch was used to exsanguinate the extremity. The tourniquet was inflated to 250 mmHg. A midline incision was made with a 15 blade scalpel between the thenar and hypothenar eminence. This was carried down through the skin and subcutaneous tissue. Casa retractors were then used, a deep blade scalpel was used to make a deep incision in the palmar aponeurosis. The casa retractors were then placed deep to this and the transverse carpal ligament was identified a perforation was made with a scalpel and a Littler scissors were used to complete the release of the transverse carpal ligament distally under direct visualization with the tips facing ulnarly until the perivascular fat was reached. Then turning our attention proximally using a tension slide technique the proximal extent of the transverse carpal ligament was released . There was noted to be hourglass configuration to the median nerve and hypertrophy of the transverse carpal ligament without other findings. The wound was thoroughly irrigated and was closed with 4-0 nylon vertical mattress stitches. Dressing was applied in the form of xeroform 4 x 4, web roll and an adam wrap. Tourniquet was let down there is no intraoperative complications patient tolerated the procedure well and was transferred to the PACU. All counts were correct.
--- NOTE | 2023-07-04 07:59 | DCINST_ITS ---
Discharge Instructions Diet Discharge Diet: No restrictions Dressing / Incision Call your doctor if you observe: Shortness of breath and Chest pain Additional Dressing/Incision Instructions:: Ice and elevate operative extremity next 72 hours. Keep dressing on clean and dry for 48 hours then may remove and allow warm soapy water to rinse over incision but do not submerge until sutures are out. Then apply bandaid over incision and change daily. encourage finger range of motion. Not lift more than 1/2 pound. Minimize narcotic use only as needed and directed, may use OTC NSAID and Tylenol to supplement/substitute for pain control. Follow Up Care Please Follow Up With: Logan Bates DO When: 2 weeks Test Results: Test results from this visit will be discussed in further detail at your follow- up appointment, if applicable. Discharge Plan Admission Primary Reason for Your Visit: Right carpal tunnel release Attending Provider: Logan Bates Primary Care Provider: Kamla Shultz Discharge Orders/Prescriptions Prescriptions: New oxycodone 5 mg tablet 5 - 10 mg PO Q4H PRN (Reason: pain) 5 Days Qty: 20 0RF No Action ibuprofen 200 mg capsule 200 mg PO TID-QID PRN (Reason: Pain) cholecalciferol (vitamin D3) 50 mcg (2,000 unit) capsule 50 mcg PO DAILY multivitamin [Daily Multi-Vitamin] Tablet 1 tab PO DAILY cyanocobalamin (vitamin B-12) 5,000 mcg tablet,disintegrating 5,000 mcg PO .QOD magnesium oxide 500 mg capsule 200 mg PO BID loratadine [Claritin] 10 mg tablet 10 mg PO DAILY PRN (Reason: allergy symptoms) Farxiga 10 mg tablet 10 mg PO DAILY Qty: 30 5RF albuterol sulfate 90 mcg/actuation HFA aerosol inhaler 1 puff inhalation Q6H PRN (Reason: shortness of breath or wheezing) Qty: 8.5 2RF buspirone 5 mg tablet 5 mg PO QHS lisinopril 10 mg tablet 10 mg PO QHS ezetimibe 10 mg tablet 10 mg PO QHS Rexulti 1 mg tablet 1 mg PO QHS salicylic acid 3 % cream 1 applic topical DAILY PRN (Reason: PSOROASIS) Trulicity 4.5 mg/0.5 mL pen injector 4.5 mg subcut MO glipizide 10 mg tablet 10 mg PO BID Qty: 180 1RF metformin 1,000 mg tablet 1,000 mg PO BID Qty: 60 2RF citalopram 40 mg tablet 40 mg PO DAILY Qty: 90 0RF duloxetine 60 mg capsule,delayed release(DR/EC) 60 mg PO DAILY Qty: 90 0RF gabapentin 300 mg capsule 300 mg PO BID Qty: 60 0RF Referrals / Follow Up: Kamla Shultz MD [Primary Care Provider] - Disposition Disposition (needs filled in before D/C Order can be placed): Home, Self Care
== END 2023-07-04 09:10 | disposition home or self-care (01) ==
LOC: SDC 05:59 → AC 06:01
PROVIDERS: PCP Internal Medicine; Referring Provider Orthopaedic Surgery; Visit Provider Orthopaedic Surgery
PROC: (CPT 64721; principal; 2023-07-04 07:15)
DX: G56.03 Carpal tunnel syndrome, bilateral upper limbs (principal); Z68.41 Body mass index [BMI] 40.0-44.9, adult; E11.9 Type 2 diabetes mellitus without complications; E66.9 Obesity, unspecified; Z79.84 Long term (current) use of oral hypoglycemic drugs; Z87.891 Personal history of nicotine dependence; Z79.85 Long-term (current) use of injectable non-insulin antidiabetic drugs; Z79.899 Other long term (current) drug therapy; E78.00 Pure hypercholesterolemia, unspecified; J45.909 Unspecified asthma, uncomplicated; I10 Essential (primary) hypertension
CPT/HCPCS: 64721; 01810; J7120; J2405

== ENCOUNTER → 2023-09-05 | Outpatient (CLI) | payer OTHER, SELFPAY ==
[2023-09-05 10:33] LABS: Mucous, Urine 0 SEEN /hpf (<or=2+)
[2023-09-05 10:40] LABS: Color, Urine Yellow (Yellow); Glucose, Dipstick 1000 mg/dl (Normal); Ketone-Dipstick Negative (Negative); Leukocyte Esterase-Dipstick 500 /ul (Negative); Nitrite-Dipstick Negative (Negative); Occult Blood-Urine 250 /ul (Negative); Protein-Dipstick 100 mg/dl (Negative); Specific Gravity, Urine 1.015 (1.002-1.030); Urine Bilirubin Dipstick Negative (Negative); Urine Clarity Sl. Cloudy (Clear); Urine Urobilinogen Normal (Normal)
[2023-09-05 10:49] LABS: Amorphous Sediment 1+; Bacteria 1+ /hpf (None Seen); Red Blood Cells-Urine 25-50 SEEN /hpf (0-5); Squamous Epithelial Cells - UA 5-10 SEEN /hpf (5-10); White Blood Cells 25-50 SEEN /hpf (0-5)
== END | disposition home or self-care (01) ==
LOC: LABSPEC 10:18
PROVIDERS: PCP Internal Medicine; Referring Provider Physician Assistant; Visit Provider Physician Assistant
DX: R30.0 Dysuria (principal)
CPT/HCPCS: 81001; 87077; 87086; 87088; 87186

== ENCOUNTER → 2023-11-02 | Outpatient (CLI) | payer OTHER, SELFPAY ==
[2023-11-02 09:26] LABS: Mucous, Urine 0 SEEN /hpf (<or=2+)
[2023-11-02 10:20] LABS: Color, Urine Yellow (Yellow); Glucose, Dipstick 1000 mg/dl (Normal); Ketone-Dipstick Negative (Negative); Leukocyte Esterase-Dipstick 500 /ul (Negative); Nitrite-Dipstick Positive (Negative); Occult Blood-Urine 250 /ul (Negative); Protein-Dipstick 100 mg/dl (Negative); Specific Gravity, Urine 1.025 (1.002-1.030); Urine Bilirubin Dipstick Negative (Negative); Urine Clarity Cloudy (Clear); Urine Urobilinogen Normal (Normal)
[2023-11-02 10:30] LABS: White Blood Cells >100 SEEN /hpf (0-5)
[2023-11-02 10:32] LABS: Bacteria 4+ /hpf (None Seen); Red Blood Cells-Urine 5-10 SEEN /hpf (0-5); Squamous Epithelial Cells - UA 10-25 SEEN /hpf (5-10)
== END | disposition home or self-care (01) ==
PROVIDERS: PCP Internal Medicine; Referring Provider Nurse Practitioner Family; Visit Provider Nurse Practitioner Family
DX: E11.9 Type 2 diabetes mellitus without complications (principal)
CPT/HCPCS: 81001; 87077; 87086; 87088; 87186

== ENCOUNTER 2023-11-29 07:14 | Day surgery (SDC) | payer OTHER, SELFPAY ==
[2023-11-29] VITALS (8 sets, daily range): BP systolic 80–123; BP diastolic 57–72; PULSE 67–89; RESP 16; TEMP 36.1–36.5; O2SAT 94–100; BMI 42.1
--- NOTE | 2023-11-29 07:22 | H&P.OPEN ---
[facility] - General General Date of Service: 11/29/23 HPI Narrative KAM FALLON, is a 53 F who presents for screening colonoscopy. Patient denies previous colonoscopy. Patient denies any family history of colon cancer. Patient has bowel movements about 4 times a week denies any blood. Patient denies any chronic abdominal pain/nausea/vomiting/reflux. [facility] Medical History (Updated 11/10/23 @ 06:48 by Jorge ANDERSEN, PA) Alcohol use Anxiety Anxiety disorder, unspecified Asthma Avulsion of nail plate Back pain Depression Diabetes Dietary restriction Former smoker Hypertension Injury of head and neck Leg cramps MDD (major depressive disorder) Microalbuminuria Migraine headache Obesity Post-menopausal Scabies Shortness of breath on exertion Stomach ulcer Syncope Tinnitus Wears glasses Home Medications ibuprofen 200 mg capsule 200 mg PO TID-QID PRN Pain 10/24/18 [History Last Taken Unknown] cholecalciferol (vitamin D3) 50 mcg (2,000 unit) capsule 50 mcg PO DAILY 11/11/21 [History Last Taken Unknown] cyanocobalamin (vitamin B-12) 5,000 mcg disintegrating tablet 5,000 mcg PO .QOD 05/11/22 [History Last Taken Unknown] multivitamin (Daily Multi-Vitamin tablet) 1 tab PO DAILY 05/11/22 [History Last Taken Unknown] magnesium oxide 500 mg capsule 200 mg PO BID 05/31/22 [History Last Taken Unknown] loratadine 10 mg tablet (Claritin) 10 mg PO DAILY PRN allergy symptoms 10/19/22 [History Last Taken Unknown] albuterol sulfate 90 mcg/actuation aerosol inhaler 1 puff inhalation Q6H PRN shortness of breath or wheezing #8.5 grams 04/20/23 [Rx Last Taken Unknown] dulaglutide 4.5 mg/0.5 mL subcutaneous pen injector (Trulicity) 4.5 mg subcut MO 06/27/23 [History Last Taken Unknown] salicylic acid 3 % topical cream 1 applic topical DAILY PRN PSOROASIS 06/27/23 [History Last Taken Unknown] brexpiprazole 1 mg tablet (Rexulti) 1 mg PO QHS #90 tabs 08/30/23 [Rx Last Taken Unknown] duloxetine 60 mg capsule,delayed release 60 mg PO DAILY #90 caps 08/30/23 [Rx Last Taken Unknown] glipizide 10 mg tablet 10 mg PO BID #180 tabs 09/13/23 [Rx Last Taken Unknown] lisinopril 10 mg tablet 10 mg PO QHS #90 tabs 09/25/23 [Rx Last Taken Unknown] doxepin 10 mg capsule 10 mg PO QHS #90 caps 10/18/23 [Rx Last Taken Unknown] gabapentin 300 mg capsule 300 mg PO BID #60 caps 10/30/23 [Rx Last Taken Unknown] metformin 1,000 mg tablet 1,000 mg PO BID #60 tabs 10/30/23 [Rx Last Taken Unknown] ezetimibe 10 mg tablet 10 mg PO QHS #30 tabs 11/13/23 [Rx Last Taken Unknown] Allergy/AdvReac Type Severity Reaction Status Date / Time red dye Allergy Unknown Triggers Verified 11/29/23 07:29 Asthma Environmental Allergies: AdvReac Aggravates Verified 11/29/23 07:29 Uncoded Asthma Family History Mother Hypertension Father Hypertension Diabetes Cancer pancreatic Grandmother Diabetes Cancer Uncle Cancer lung Surgical History (Updated 11/24/23 @ 10:58 by Mable Reyes) H/O oral surgery S/P carpal tunnel release Social History household members: spouse current occupational status: employed current occupation: cashier payments received at [employer] Smoking Status: Former smoker Electronic Cigarette Use: not used alcohol intake: current alcohol intake frequency: holidays/special occasions only substance use type: does not use do you feel safe at home: Yes Past Medical/Surgical History Planned Operation Planned Operative Procedure/s: CSCOPE OA Previous Hospitalizations/Surgeries HX Hospitalizations: No Any Problems With Anesthesia: No You/Your Family Experience Fever (Hyperthermia) With Anes: No Cholinesterase deficiency: No Cardiovascular Hx Chest Pain within Last 2 months: No Hx Heart Attack: No Hx Hypertension: Yes (CONTROLLED WITH MED) Hx Cardiac Surgery/Stents/Etc.: No Respiratory Hx Chronic Obstructive Pulmonary Disease (COPD): No Hx Sleep Apnea: No Hx Respiratory Tract Infection/Cold (presently): No Do You Snore Loudly (louder than talking or can be heard): No Do You Often Feel Tired/ Fatigued/ Sleepy Dring Daytime?: No Has Anyone Observed You Stop Breathing During Sleep?: No Result (for STOP score): Negative Hx Smoking: No Smoking Status: Former smoker Neurological Hx Seizures: No Hx Multiple Sclerosis: No Does patient have nerve stimulator: No Blood Disorder Hx Anemia: No Genitourinary Hx Dialysis: No Musculoskeletal Hx Arthritis: No Hx Rheumatoid Arthritis: No Endocrine Hx Diabetes: Yes Thyroid Disease: No Psycho/Social Hx Depression: No Hx Dementia: No Miscellaneous Hx Cancer: No Recent Exposure to Contagious Disease: No Allergies red dye Allergy (Unknown, Verified 11/29/23 07:29) Triggers Asthma Environmental Allergies: Uncoded Adverse Reaction (Verified 11/29/23 07:29) Aggravates Asthma Antimicrobial Discharge Is Pt Admitted From a Detention, or a Jail: No After D/C, Where Do you Plan to Go: Return Home Physical Exam Const alert, oriented x3 and no apparent distress HEENT normocephalic and head/scalp atraumatic Resp normal respiratory effort Cardio regular rate GI soft to palpation and non-tender; Negative for non-distended Palpation: Negative for guarding Extremity no clubbing, cyanosis or edema Skin no rashes or lesions noted Neuro CN's II-XII intact bilaterally Psych mental status grossly normal Assessment & Plan Assessment/Plan (1) Encounter for screening for malignant neoplasm of colon: Surgery Risks - Colonoscopy I discussed with the patient the risks of the procedure: Yes Risks Include but are not Limited To: Risks include but are not limited to: Bleeding, perforation requiring further surgery, inability to complete colonoscopy requiring barium enema.
[2023-11-29] MEDS: Lactated Ringers 1,000 ML 15 ML IV (07:46)
[2023-11-29 08:05] LABS: Bedside Glucose 111 mg/dL (74-106)
--- NOTE | 2023-11-29 09:09 | OP.CCLET_ITS ---
11/29/2023 Kamla Shultz Md Re : Colonoscopy procedure for Alexandra Morales Dear Lexii This procedure was performed on Wednesday, November 29, 2023. My impressions and recommendations are as follows: Impressions : - The entire examined colon is normal on direct and retroflexion views. - No specimens collected. Recommendations : - Discharge patient to home. - Resume previous diet. - Continue present medications. - Repeat colonoscopy in 10 years for screening purposes. My findings are described in the full procedure note, which is enclosed. If I can be of further assistance, please feel free to contact me at Doctor phone number(s): , Work: . Sincerely, MD Frieda Turk MD 11/29/2023 9:08:55 AM This report has been signed electronically.
--- NOTE | 2023-11-29 09:09 | OP.COLON_ITS ---
Patient Name: Alexandra Morales Procedure Date: 11/29/2023 8:22 AM Date of : 1970 Age: 53 Procedure: Colonoscopy Indications: Screening for colorectal malignant neoplasm Providers: Frieda Charlton MD Referring MD: Kamla Shultz Md Medicines: Monitored Anesthesia Care Patient Profile: This is a 53 year old female. Last Colonoscopy: none. The patient's first colonoscopy is today. Complications: No immediate complications. Procedure: Pre-Anesthesia Assessment: - Prior to the procedure, a History and Physical was performed, and patient medications and allergies were reviewed. The patient's tolerance of previous anesthesia was also reviewed. The risks and benefits of the procedure and the sedation options and risks were discussed with the patient. All questions were answered, and informed consent was obtained. Prior Anticoagulants: The patient has taken no anticoagulant or antiplatelet agents. ASA Grade Assessment: Per anesthesia. After reviewing the risks and benefits, the patient was deemed in satisfactory condition to undergo the procedure. After I obtained informed consent, the scope was passed under direct vision. Throughout the procedure, the patient's blood pressure, pulse, and oxygen saturations were monitored continuously. The Colonoscope was introduced through the anus and advanced to the cecum, identified by appendiceal orifice and ileocecal valve. The colonoscopy was technically difficult and complex due to significant looping. The patient tolerated the procedure well. The quality of the bowel preparation was adequate. Scope In: 8:28:35 AM Scope Withdrawal Time 0 hours 10 minutes 42 seconds Scope Out: 9:01:42 AM Total Procedure Duration Time 0 hours 33 minutes 7 seconds Findings: The perianal and digital rectal examinations were normal. The entire examined colon appeared normal on direct and retroflexion views. Impression: - The entire examined colon is normal on direct and retroflexion views. - No specimens collected. Recommendation: - Discharge patient to home. - Resume previous diet. - Continue present medications. - Repeat colonoscopy in 10 years for screening purposes. Procedure Code(s): --- Professional --- G0121, PT, Colorectal cancer screening; colonoscopy on individual not meeting criteria for high risk Diagnosis Code(s): --- Professional --- Z12.11, Encounter for screening for malignant neoplasm of colon CPT copyright 2021 [employer]. All rights reserved. The codes documented in this report are preliminary and upon braille coder review may be revised to meet current compliance requirements. MD Frieda Turk MD 11/29/2023 9:08:55 AM This report has been signed electronically. Number of Addenda: 0 Note Initiated On: 11/29/2023 8:22 AM
== END 2023-11-29 10:07 | disposition home or self-care (01) ==
LOC: EN 07:17 → AC 07:17
PROVIDERS: PCP Internal Medicine; Referring Provider Internal Medicine; Visit Provider Surgery
PROC: 0DJD8ZZ Inspection of Lower Intestinal Tract, Via Natural or Artificial Opening Endoscopic (ICD-10-PCS; CPT 45378; principal; 2023-11-29 08:40)
DX: Z12.11 Encounter for screening for malignant neoplasm of colon (principal); E11.9 Type 2 diabetes mellitus without complications; I10 Essential (primary) hypertension; Z87.891 Personal history of nicotine dependence
CPT/HCPCS: G0121; 82962; J7120; J2405

== ENCOUNTER → 2024-01-25 | Outpatient (CLI) | payer OTHER, SELFPAY ==
[2024-01-25 09:01] LABS: Mucous, Urine 0 SEEN /hpf (<or=2+); Red Blood Cells-Urine 0 SEEN /hpf (0-5)
[2024-01-25 10:17] LABS: Color, Urine Yellow (Yellow); Glucose, Dipstick 250 mg/dl (Normal); Ketone-Dipstick 5 mg/dl (Negative); Leukocyte Esterase-Dipstick 500 /ul (Negative); Nitrite-Dipstick Negative (Negative); Occult Blood-Urine 25 /ul (Negative); Protein-Dipstick 30 mg/dl (Negative); Specific Gravity, Urine 1.025 (1.002-1.030); Urine Bilirubin Dipstick Negative (Negative); Urine Clarity Cloudy (Clear); Urine Urobilinogen Normal (Normal)
[2024-01-25 10:26] LABS: White Blood Cells 50-100 SEEN /hpf (0-5)
[2024-01-25 10:27] LABS: Bacteria 2+ /hpf (None Seen); Squamous Epithelial Cells - UA 0-5 SEEN /hpf (5-10); Transitional Epithelial - Ur 0-5 SEEN /hpf (0-5)
== END | disposition home or self-care (01) ==
LOC: LAB 08:55
PROVIDERS: PCP Internal Medicine; Referring Provider Nurse Practitioner Family; Visit Provider Nurse Practitioner Family
DX: E11.9 Type 2 diabetes mellitus without complications (principal)
CPT/HCPCS: 81001; 82570

== ENCOUNTER → 2024-06-01 | Outpatient (CLI) | payer OTHER, SELFPAY ==
[2024-06-01 08:08] LABS: AST(SGOT) 32 U/L (15-37); Alanine Aminotransfer ALT/SGPT 48 U/L (13-56); Albumin, Serum 3.5 g/dL (3.2-5.0); Alkaline Phosphatase 91 U/L (45-117); Anion Gap 8 (5-15); BUN 16 mg/dL (7-18); BUN/Creat Ratio 24.7 RATIO (10-20); Calcium,Total 9.3 mg/dL (8.5-10.1); Chloride 110 mmol/L (98-107); Cholesterol 161 mg/dL (200); Creatinine, Serum 0.65 mg/dL (0.55-1.02); EST Glomerular Filtration Rate 102 mL/min (>60); Est Glom Filt Rate - Afr Amer 123 mL/min (>60); Globulin 3.5 g/dL (2.2-4.2); Glucose 161 mg/dL (74-106); High Density Lipoprotein 39 mg/dL; Potassium 4.1 mmol/L (3.5-5.1); Sodium Level 143 mmol/L (136-145); Triglycerides 251 mg/dL; Very Low Density Lipoprotein 50 mg/dL (5-40)
[2024-06-03 07:50] LABS: Vitamin D,25 Hydroxy 38.5 ng/mL
== END | disposition home or self-care (01) ==
LOC: LAB 07:03
PROVIDERS: PCP Internal Medicine; Referring Provider Nurse Practitioner Family; Visit Provider Nurse Practitioner Family
DX: E11.65 Type 2 diabetes mellitus with hyperglycemia (principal); E66.01 Morbid (severe) obesity due to excess calories; Z68.42 Body mass index [BMI] 45.0-49.9, adult
CPT/HCPCS: 36415; 80053; 80061; 82043; 82306; 82570; 84443

== ENCOUNTER → 2024-08-16 | Outpatient (CLI) | payer OTHER, SELFPAY ==
--- NOTE | 2024-08-16 12:09 | US_ITS ---
STUDY: THYROID ULTRASOUND REASON FOR EXAM: Female, 54 years old. thyroid nodule TECHNIQUE: Ultrasound evaluation of the thyroid was performed with real-time and static nielson-scale imaging. COMPARISON: None. FINDINGS: RIGHT LOBE: The right lobe of the thyroid gland measures 4.3 x 1.9 x 1.6 cm. There is a homogeneous echotexture. Small 7.1 mm simple cyst in the posterior aspect of the gland. 1 mm mixed cystic and solid nodule with calcification in the middle one third region is most likely a degenerated adenoma. LEFT LOBE: The left lobe of the thyroid gland measures 4.9 x 2.4 x 1.5 cm. There is a heterogeneous echotexture. Encapsulated mixed echogenicity partially calcified nodule at the periphery of the left lobe measures 1.5 x 1.5 cm. 9 mm calcified nodule anterior midline, and 5 cm cyst. ISTHMUS: The isthmus measures 3 mm. US/Thyroid IMPRESSION: 1. Left lobe = Encapsulated mixed echogenicity partially calcified nodule at the periphery of the left lobe measures 1.5 x 1.5 cm. The calcium suggest a degenerated adenoma. 2. TR2: 2 points = not suspicious 3. If physical symptoms, abnormal thyroid values or other findings warrant further radiologic assessment repeat the study and consider nuclear medicine iodine 123 or PET/CT if there is concern for malignancy. 4. Targeted image guided biopsy of nodules of interest can also be performed with definitive pathologic assessment and diagnosis. ACR Thyroid Imaging Reporting and Data System (ACR TI-RADS) Reference: COMPOSITION (choose 1): Cystic or almost completely cystic - 0 points Spongiform- 0 points Mixed cystic and solid - 1 point Solid almost completely solid - 2 points ECHOGENICITY (choose 1): Anechoic space - 0 points Hyperechoic or isoechoic-1 point Hypoechoic-2 points Very hypoechoic-3 points SHAPE (choose 1): : Wider than tall-0 points Taller than wide-3 points MARGINS ( smooth, lobular, ill-defined) ECHOGENIC FOCI (macro or microcalcifications) Scoring and classification TR1: 0 points = benign TR2: 2 points = not suspicious TR3: 3 points = mildly suspicious TR4: 4-6 points = moderately suspicious TR5: ?7 points = highly suspicious Recommendations TR1: no FNA required TR2: no FNA required TR3: ?1.5 cm follow up, ?2.5 cm FNA = follow up: 1, 3 and 5 years TR4: ?1.0 cm follow up, ?1.5 cm FNA = follow up: 1, 2, 3 and 5 years TR5: ?0.5 cm follow up, ?1.0 cm FNA = annual follow up for up to 5 years FNA biopsy is recommended for suspicious lesions (TR3-TR5) with the above size criteria. If there are multiple nodules, the two with the highest ACR TI-RADS scores should be sampled (rather than the two largest), with largest size being used a tie-breaker if there are multiple nodules of the same classification. Electronically Signed: Mohsen Caldwell MD at 10:01 EST Reading Location ID and State: [facility] / [place] , Service support ,
== END | disposition home or self-care (01) ==
PROVIDERS: PCP Internal Medicine; Referring Provider Internal Medicine; Visit Provider Internal Medicine
DX: E04.1 Nontoxic single thyroid nodule (principal)
CPT/HCPCS: 76536

== ENCOUNTER → 2024-12-04 | Outpatient (CLI) | payer OTHER, SELFPAY ==
[2024-12-10 08:08] LABS: HPV APTIMA, High Risk Negative (Negative)
== END | disposition home or self-care (01) ==
LOC: LABSPEC 16:22
PROVIDERS: PCP Internal Medicine; Referring Provider Advanced Practice Midwife; Visit Provider Advanced Practice Midwife
DX: Z12.4 Encounter for screening for malignant neoplasm of cervix (principal); Z78.0 Asymptomatic menopausal state
CPT/HCPCS: 87624; 88175; G0145

== ENCOUNTER → 2024-12-26 | Outpatient (CLI) | payer OTHER, SELFPAY ==
[2024-12-26 12:38] LABS: Mucous, Urine 0 SEEN /hpf (<or=2+)
[2024-12-26 13:10] LABS: Color, Urine Straw (Yellow); Glucose, Dipstick Normal (Normal); Ketone-Dipstick Negative (Negative); Leukocyte Esterase-Dipstick 500 /ul (Negative); Nitrite-Dipstick Negative (Negative); Occult Blood-Urine 10 /ul (Negative); Protein-Dipstick 30 mg/dl (Negative); Specific Gravity, Urine 1.015 (1.002-1.030); Urine Bilirubin Dipstick Negative (Negative); Urine Clarity Turbid (Clear); Urine Urobilinogen Normal (Normal)
[2024-12-26 14:01] LABS: White Blood Cells >100 SEEN /hpf (0-5)
[2024-12-26 14:02] LABS: Red Blood Cells-Urine 0-5 SEEN /hpf (0-5)
[2024-12-26 14:03] LABS: Bacteria 3+ /hpf (None Seen); Squamous Epithelial Cells - UA 0-5 SEEN /hpf (5-10)
[2024-12-30 17:07] LABS: Acetylcholine Receptor Binding < 0.07 nmol/L (0.00-0.24)
== END | disposition home or self-care (01) ==
PROVIDERS: PCP Internal Medicine; Referring Provider Ophthalmology; Visit Provider Ophthalmology
DX: H25.812 Combined forms of age-related cataract, left eye (principal); E11.3293 Type 2 diabetes mellitus with mild nonproliferative diabetic retinopathy without macular edema, bilateral; H02.403 Unspecified ptosis of bilateral eyelids; H57.813 Brow ptosis, bilateral
CPT/HCPCS: 36415; 81001; 84238; 87077; 87086; 87088

== ENCOUNTER → 2025-01-23 | Outpatient (CLI) | payer OTHER, SELFPAY ==
[2025-01-23 16:46] LABS: Mucous, Urine 0 SEEN /hpf (<or=2+)
[2025-01-23 18:23] LABS: Color, Urine Yellow (Yellow); Glucose, Dipstick Normal (Normal); Ketone-Dipstick Negative (Negative); Leukocyte Esterase-Dipstick 500 /ul (Negative); Nitrite-Dipstick Negative (Negative); Occult Blood-Urine 10 /ul (Negative); Protein-Dipstick 30 mg/dl (Negative); Specific Gravity, Urine 1.015 (1.002-1.030); Urine Bilirubin Dipstick Negative (Negative); Urine Clarity Turbid (Clear); Urine Urobilinogen Normal (Normal)
[2025-01-23 19:48] LABS: Bacteria 2+ /hpf (None Seen); Squamous Epithelial Cells - UA 0-5 SEEN /hpf (5-10); White Blood Cells >100 SEEN /hpf (0-5)
[2025-01-23 19:50] LABS: Red Blood Cells-Urine 0-5 SEEN /hpf (0-5)
== END | disposition home or self-care (01) ==
LOC: LAB 16:13
PROVIDERS: PCP Internal Medicine; Referring Provider Internal Medicine; Visit Provider Internal Medicine
DX: R30.0 Dysuria (principal)
CPT/HCPCS: 81001

== ENCOUNTER → 2025-02-11 | Outpatient (CLI) | payer OTHER, SELFPAY ==
[2025-02-11 06:13] LABS: Mucous, Urine 0 SEEN /hpf (<or=2+)
[2025-02-11 06:47] LABS: Color, Urine Yellow (Yellow); Glucose, Dipstick Normal (Normal); Ketone-Dipstick Negative (Negative); Leukocyte Esterase-Dipstick 500 /ul (Negative); Nitrite-Dipstick Negative (Negative); Occult Blood-Urine 25 /ul (Negative); Protein-Dipstick 30 mg/dl (Negative); Urine Bilirubin Dipstick Negative (Negative); Urine Clarity Cloudy (Clear); Urine Urobilinogen Normal (Normal)
[2025-02-11 06:53] LABS: Bacteria 3+ /hpf (None Seen); Red Blood Cells-Urine 0-5 SEEN /hpf (0-5); Renal Epithelial Cells 0-5 SEEN /hpf (0-5); Squamous Epithelial Cells - UA 0-5 SEEN /hpf (5-10); Transitional Epithelial - Ur 0-5 SEEN /hpf (0-5); White Blood Cells >100 SEEN /hpf (0-5)
== END | disposition home or self-care (01) ==
LOC: LAB 06:04
PROVIDERS: PCP Internal Medicine; Referring Provider Family Medicine; Visit Provider Family Medicine
DX: N39.0 Urinary tract infection, site not specified (principal)
CPT/HCPCS: 81001; 87077; 87086; 87088; 87186

== ENCOUNTER → 2025-03-25 | Outpatient (CLI) | payer OTHER, SELFPAY ==
[2025-03-25 09:17] LABS: Creatinine, Urine (random) 130.00 mg/dL (28.00-217.00)
[2025-03-25 09:30] LABS: Microalbumin,Random Urine 13.4 mg/L (NO RANGE EST.)
[2025-03-25 09:36] LABS: AST(SGOT) 20 U/L (<=31); Alanine Aminotransfer ALT/SGPT 31 U/L (<=34); Albumin, Serum 4.1 g/dL (3.5-5.0); Alkaline Phosphatase 69 U/L (35-104); Anion Gap 12 (5-15); BUN 11 mg/dL (4-19); BUN/Creat Ratio 16.7 RATIO (10-20); Calcium,Total 9.2 mg/dL (7.6-11.0); Carbon Dioxide 24.1 mmol/L (21.0-32.0); Chloride 105 mmol/L (98-108); Cholesterol 134 mg/dL (<=200); Globulin 2.6 g/dL (2.2-4.2); Glucose 168 mg/dL (70-99); Low Density Lipoprotein Calc. 75 mg/dL; Potassium 4.1 mmol/L (3.3-5.1); Triglycerides 111 mg/dL; Very Low Density Lipoprotein 22 mg/dL (5-40); Vitamin D,25 Hydroxy 45.2 ng/mL (30-100); cholesterol:hdl ratio screen 3.61
== END | disposition home or self-care (01) ==
LOC: LAB 06:03
PROVIDERS: PCP Internal Medicine; Referring Provider Nurse Practitioner Family; Visit Provider Nurse Practitioner Family
DX: E11.65 Type 2 diabetes mellitus with hyperglycemia (principal)
CPT/HCPCS: 36415; 80053; 80061; 82043; 82306; 82570; 84443